=== PATIENT | female | born 1955 ===

== ENCOUNTER 2017-04-20 07:27 | Outpatient (CLI) | payer OTHER ==
[~2017-04-20] VITALS: Ht 152.4 cm; Wt 68.9 kg
== END 2017-04-20 07:50 | disposition home or self-care (01) ==
LOC: OFIC 805 07:27
DX: H69.82 Other specified disorders of Eustachian tube, left ear (principal); J31.0 Chronic rhinitis; H90.12 Conductive hearing loss, unilateral, left ear, with unrestricted hearing on the contralateral side

== ENCOUNTER 2017-05-18 08:21 | Outpatient (CLI) | payer OTHER ==
[~2017-05-18] VITALS: Ht 152.4 cm; Wt 68.9 kg
== END 2017-05-18 08:40 | disposition home or self-care (01) ==
LOC: OFIC 805 08:21
DX: K21.9 Gastro-esophageal reflux disease without esophagitis (principal); J02.8 Acute pharyngitis due to other specified organisms; H69.02 Patulous Eustachian tube, left ear; J31.0 Chronic rhinitis

== ENCOUNTER 2017-07-18 08:57 | Outpatient (CLI) | payer OTHER ==
[~2017-07-18] VITALS: Ht 165.1 cm; Wt 68.9 kg
== END 2017-07-18 09:20 | disposition home or self-care (01) ==
LOC: OFIC 805 08:57
DX: J31.0 Chronic rhinitis (principal); H93.13 Tinnitus, bilateral; H69.83 Other specified disorders of Eustachian tube, bilateral